=== PATIENT | female | born 1970 | race Caucasian/White ===

== ENCOUNTER → 2017-02-21 | Outpatient (CLI) | payer OTHER ==
[~2017-02-21] MED LIST: ESCI1TAB10 PO; HYDR-3124 PO; RANI150T3 PO; ZYRUNK PO
--- NOTE | 2017-02-22 08:13 | MAMMOGRAPHY REPORT ---
BILATERAL DIGITAL SCREENING MAMMOGRAM WITH CAD: 02/21/2017 CLINICAL HISTORY: Routine screening. Patient has no complaints. TECHNIQUE: Bilateral CC and MLO views of the breasts with and without implant displaced views were ob tained. Current study was also evaluated with a Computer Aided Detection (CAD) system. COMPARISON: No prior exams were available for comparison. BREAST COMPOSITION: The tissue of both breasts is heterogeneously dense, which may obscure small mas ses. FINDINGS: Bilateral subpectoral silicone implants are in place. No suspicious mass, architectural di stortion or cluster of microcalcifications is seen. IMPRESSION: ACR BI-RADS CATEGORY 1: NEGATIVE There is no mammographic evidence of malignancy in the breasts. Bilateral subpectoral silicone impla nts are in place. Prior outside mammograms are currently being requested and if obtained the will be reviewed, compared to the current exam to assess for any more subtle changes, and an addendum will b e made to this report. Otherwise, a 1 year screening mammogram is recommended. The patient will rec eive written notification of the results. Approximately 10% of breast cancers are not detected with mammography. A negative mammographic report should not delay biopsy if a clinically suggestive mass is present. Juliana Kelly M.D. ay/:02/21/2017 15:54:23 Client Analyst: Amanda CAMACHO(Sondra)(Robles)(MARCOS), [facility] letter sent: Normal 1/2 BI-RADS Code: ACR BI-RADS Category 1: Negative
== END | disposition home or self-care (01) ==
LOC: C.MAMM 13:22
PROVIDERS: ATTEND Family Medicine
DX: Z12.31 Encounter for screening mammogram for malignant neoplasm of breast (principal)